=== PATIENT | male | born 2000 ===

== ENCOUNTER 2021-10-06 22:43 | Emergency (ER) | payer BC, SELFPAY ==
[2021-10-07 02:12] LABS: Urine Blood Negative (Negative); Urine Glucose Negative (Negative); Urine Protein Negative (Negative); Urine pH 7.5 (5.0-7.0)
--- NOTE | 2021-10-07 03:03 | ER ---
Nurse's Notes [facility] Name: Linden Dorantes Age: 21 yrs Sex: Male : 2000 Arrival Date: 10/06/2021 Time: 23:36 Bed 16 Private MD: Diagnosis: Nonspecific urethritis Presentation: 10/06 23:56 Chief complaint: Patient states: painful burning urination. sexually active. does not kd3 use condoms. would like to be tested STD. Coronavirus screen: Vaccine status: Patient reports being unvaccinated. Ebola Screen: No symptoms or risks identified at this time. Initial Sepsis Screen: Does the patient meet any 2 criteria? No. Patient's initial sepsis screen is negative. Does the patient have a suspected source of infection? No. Patient's initial sepsis screen is negative. Risk Assessment: Do you want to hurt yourself or someone else? Patient reports no desire to harm self or others. Onset of symptoms was October 01, 2021. 23:56 Method Of Arrival: Ambulatory kd3 23:56 Acuity: REX 4 kd3 Triage Assessment: 10/07 00:01 General: Appears in no apparent distress. Behavior is calm, cooperative. Pain: Denies kd3 pain. Historical: - Allergies: 00:01 No Known Allergies; kd3 - Home Meds: 00:01 None [Active]; kd3 - PMHx: 00:01 None; kd3 - PSHx: 00:01 None; kd3 - Immunization history:: Adult Immunizations up to date, Client reports having NOT received the Covid vaccine. - Social history:: Smoking status: Patient reports the use of cigarette tobacco products, denies chronic smoking, but will smoke occasionally. Screenin:02 Abuse screen: Denies threats or abuse. Denies injuries from another. Nutritional kd3 screening: No deficits noted. Tuberculosis screening: No symptoms or risk factors identified. Fall Risk None identified. Vital Signs: 10/06 23:56 BP 134 / 85; Pulse 73; Resp 17; Temp 97.9; Pulse Ox 100% on R/A; Weight 86.18 kg; kd3 Height 6 ft. (182.88 cm); Pain 0/10; 23:56 Body Mass Index 25.77 (86.18 kg, 182.88 cm) kd3 ED Course: 23:36 Patient arrived in ED. bp1 10/07 00:01 Triage completed. kd3 00:01 Arm band placed on right wrist. kd3 00:02 Patient has correct armband on for positive identification. kd3 00:50 Lizy Spann, RN is Primary Nurse. bb 01:02 Jeremy Joshua MD is Attending Physician. 7 04:59 Gc Culture Sent. ke1 04:59 GC culture. Patient did not have IV access during this emergency room visit. ke1 Administered Medications: 03:15 Drug: Zithromax (azithromycin) 1 grams Route: PO; ke1 05:00 Follow up: Response: No adverse reaction ke1 03:15 Drug: Rocephin (cefTRIAXone) 500 mg Route: IM; Site: left deltoid; ke1 05:00 Follow up: Response: No adverse reaction ke1 Medication: 05:00 VIS not applicable for this client. ke1 Outcome: 03:01 Discharge ordered by . 7 04:59 Discharged to home ambulatory. ke1 04:59 Condition: good 04:59 Discharge instructions given to patient. 05:01 Patient left the ED. ke1 Signatures: Lizy Spann, RN RN bb Pamella Mcfarlane [facility] Jeremy Joshua MD MD 7 Cee Aguila RN RN kd3 Matthew Jameson RN RN ke1
--- NOTE | 2021-10-07 03:03 | EDPHYS ---
Physician Documentation [facility] Name: Linden Dorantes Age: 21 yrs Sex: Male : 2000 Arrival Date: 10/06/2021 Time: 23:36 Bed 16 Private MD: ED Physician Jeremy Joshua HPI: 10/07 01:50 This 21 yrs old Male presents to ER via Ambulatory with complaints of burning with mh7 urination. 01:50 The patient presents with a possible STD exposure, symptoms include dysuria. Onset: The mh7 symptoms/episode began/occurred 5 day(s) ago. Modifying factors: The symptoms are alleviated by nothing, the symptoms are aggravated by nothing. Associated signs and symptoms: Pertinent negatives: abdominal pain, constipation, diarrhea, fever, hematuria, nausea, vomiting. Severity of symptoms: At their worst the symptoms were moderate, 4 day(s) ago, in the emergency department the symptoms have improved, moderately. Historical: - Allergies: 00:01 No Known Allergies; kd3 - Home Meds: 00:01 None [Active]; kd3 - PMHx: 00:01 None; kd3 - PSHx: 00:01 None; kd3 - Immunization history:: Adult Immunizations up to date, Client reports having NOT received the Covid vaccine. - Social history:: Smoking status: Patient reports the use of cigarette tobacco products, denies chronic smoking, but will smoke occasionally. ROS: 01:50 Constitutional: Negative for fever, chills, and weight loss, Eyes: Negative for injury, mh7 pain, redness, and discharge, ENT: Negative for injury, pain, and discharge, Neck: Negative for injury, pain, and swelling, Cardiovascular: Negative for chest pain, palpitations, and edema, Respiratory: Negative for shortness of breath, cough, wheezing, and pleuritic chest pain, Abdomen/GI: Negative for abdominal pain, nausea, vomiting, diarrhea, and constipation, Back: Negative for injury and pain, MS/Extremity: Negative for injury and deformity, Skin: Negative for injury, rash, and discoloration, Neuro: Negative for headache, weakness, numbness, tingling, and seizure, Psych: Negative for depression, anxiety, suicide ideation, homicidal ideation, and hallucinations, Allergy/Immunology: Negative for hives, rash, and allergies, Endocrine: Negative for neck swelling, polydipsia, polyuria, polyphagia, and marked weight changes, Hematologic/Lymphatic: Negative for swollen nodes, abnormal bleeding, and unusual bruising. Exam: 01:50 Constitutional: This is a well developed, well nourished patient who is awake, alert, mh7 and in no acute distress. Head/Face: Normocephalic, atraumatic. Eyes: Pupils equal round and reactive to light, extra-ocular motions intact. Lids and lashes normal. Conjunctiva and sclera are non-icteric and not injected. Cornea within normal limits. Periorbital areas with no swelling, redness, or edema. Neck: Trachea midline, no thyromegaly or masses palpated, and no cervical lymphadenopathy. Supple, full range of motion without nuchal rigidity, or vertebral point tenderness. No Meningismus. Chest/axilla: Normal chest wall appearance and motion. Nontender with no deformity. No lesions are appreciated. Cardiovascular: Regular rate and rhythm with a normal S1 and S2. No gallops, murmurs, or rubs. Normal PMI, no JVD. No pulse deficits. Respiratory: Lungs have equal breath sounds bilaterally, clear to auscultation and percussion. No rales, rhonchi or wheezes noted. No increased work of breathing, no retractions or nasal flaring. Abdomen/GI: Soft, non-tender, with normal bowel sounds. No distension or tympany. No guarding or rebound. No evidence of tenderness throughout. Back: No spinal tenderness. No costovertebral tenderness. Full range of motion. 01:50 Skin: Warm, dry with normal turgor. Normal color with no rashes, no lesions, and no evidence of cellulitis. MS/ Extremity: Pulses equal, no cyanosis. Neurovascular intact. Full, normal range of motion. Neuro: Awake and alert, GCS 15, oriented to person, place, time, and situation. Cranial nerves II-XII grossly intact. Motor strength 5/5 in all extremities. Sensory grossly intact. Cerebellar exam normal. Normal gait. Psych: Awake, alert, with orientation to person, place and time. Behavior, mood, and affect are within normal limits. 01:50 : CVA tenderness, is absent, Male external genitalia: normal, Circumcision noted. erythema, is absent, penile discharge, is absent, swelling: is not appreciated, tenderness, is not appreciated, ulceration, is not present, Bladder: is normal, Sexual behavior: the patient is sexually active, and reports multiple partners, method of control is none. Vital Signs: 10/06 23:56 BP 134 / 85; Pulse 73; Resp 17; Temp 97.9; Pulse Ox 100% on R/A; Weight 86.18 kg; kd3 Height 6 ft. (182.88 cm); Pain 0/10; 23:56 Body Mass Index 25.77 (86.18 kg, 182.88 cm) kd3 MDM: 10/07 03:00 Differential diagnosis: UTI, urethritis. Differential diagnosis: STI. Data reviewed: [facility] vital signs, nurses notes, lab test result(s), urinalysis. Data interpreted: Pulse oximetry: on room air is 100 %. Interpretation: normal. Counseling: I had a detailed discussion with the patient and/or guardian regarding: the historical points, exam findings, and any diagnostic results supporting the discharge/admit diagnosis, lab results, the need for outpatient follow up, to return to the emergency department if symptoms worsen or persist or if there are any questions or concerns that arise at home. Response to treatment: the patient's symptoms have markedly improved after treatment. 03:01 Patient medically screened. [facility] 10/07 02:04 Order name: Gc Culture [facility] 10/07 02:13 Order name: Urine Dipstick-Ancillary; Complete Time: 02:55 EDMS 10/07 01:41 Order name: Urine Dipstick-Ancillary (obtain specimen); Complete Time: 02:15 [facility] 10/07 04:47 Order name: GC (Nelson/Chl) Probe CX/URE EDMS Administered Medications: 03:15 Drug: Zithromax (azithromycin) 1 grams Route: PO; ke1 05:00 Follow up: Response: No adverse reaction ke1 03:15 Drug: Rocephin (cefTRIAXone) 500 mg Route: IM; Site: left deltoid; ke1 05:00 Follow up: Response: No adverse reaction ke1 Disposition Summary: 10/07/21 03:01 Discharge Ordered Location: Home [facility] Problem: new [facility] Symptoms: have improved [facility] Condition: Stable [facility] Diagnosis - Nonspecific urethritis [facility] Followup: [facility] - With: Private Physician - When: 1 - 2 days - Reason: Worsening of condition, Recheck today's complaints, Continuance of care, Re-evaluation by your physician Discharge Instructions: - Discharge Summary Sheet [facility] - Urethritis, Adult [facility] Forms: - Medication Reconciliation Form [facility] - Thank You Letter [facility] - Antibiotic Education [facility] - Prescription Opioid Use [facility] Signatures: Dispatcher [employer] Jeremy Roman MD MD 7 Cee Aguila RN RN kd3 Matthew Jameson RN RN ke1
[2021-10-07] MEDS ORDERED: CEFTRIAXONE 500 MG/VIAL ONE (03:13)
[2021-10-07] MEDS ORDERED: AZITHROMYCIN 500 MG INJ IVPB ONE (03:13)
[2021-10-07] MEDS ORDERED: AZITHROMYCIN 250 MG TAB ONE (03:14)
[2021-10-07 05:12] VITALS: BP 134/85; TEMP 97.9; O2SAT 100
[2021-10-10 03:21] LABS: C.trachomatis RNA,TMA Detected (Not Detected)
== END 2021-10-07 05:01 | disposition home or self-care (01) ==
LOC: ER 22:43
DX: N34.1 Nonspecific urethritis (principal); F17.210 Nicotine dependence, cigarettes, uncomplicated
CPT/HCPCS: 81003; 87490; 87590; 96372; 99283; J0456; J0696